=== PATIENT | male | born 1945 | race Caucasian/White ===

== ENCOUNTER 2019-08-15 02:17 | Inpatient (IN) | payer MEDICARE, BC ==
[~2019-08-15] VITALS: Ht 188 cm; Wt 87.0 kg
[2019-08-15] MEDS ORDERED: SODIUM CHLORIDE 0.9% 1,000ML IVBOLUS ONE (03:00)
[2019-08-15 03:01] LABS: MEAN CORPUSCULAR HEMOGLOBIN 32.5 pg (27.5-34.5); MEAN CORPUSCULAR HGB CONC 32.6 g/dL (33.2-36.2); MEAN CORPUSCULAR VOLUME 99.6 fL (81-97); MEAN PLATELET VOLUME 8.2 fL (7.4-10.4); PLATELET COUNT 151 x10^3/uL (130-400); RED CELL DISTRIBUTION WIDTH 16.6 % (9.4-14.8)
[2019-08-15 03:11] LABS: INTERNATIONAL NORMALIZED RATIO 1.76 (0.93-1.1); PROTHROMBIN TIME 18.1 Seconds (9.6-11.5)
[2019-08-15 03:13] LABS: ALANINE AMINOTRANSFERASE 171 U/L (12-78); ALBUMIN 2.9 g/dL (3.4-5.0); ANION GAP 6 mmol/L (5-15); CALCIUM 7.9 mg/dL (8.5-10.1); CHLORIDE 110 mmol/L (98-107); CREATININE 1.12 mg/dL (0.7-1.3)
[2019-08-15 03:18] LABS: ALKALINE PHOSPHATASE 271 U/L (45-117); BILIRUBIN,TOTAL 5.5 mg/dL (0.2-1.0); TOTAL PROTEIN 5.8 g/dL (6.4-8.2); TROPONIN I 0.029 ng/mL (0.000-0.045)
[2019-08-15 03:34] LABS: BASOPHILS % (AUTO) 0 % (0-1); EOSINOPHILS % (AUTO) 0 % (1-7); LYMPHOCYTES # (AUTO) 0.52 x10^3/uL (1-3.4); LYMPHOCYTES % (AUTO) 3 % (22-44); MD SCAN; MONOCYTES # (AUTO) 0.39 x10^3/uL (0.2-0.8); MONOCYTES % (AUTO) 2 % (2-9); NEUTROPHILS # (AUTO) 19.35 x10^3/uL (1.8-6.8); NEUTROPHILS % (AUTO) 96 % (42-75)
--- NOTE | 2019-08-15 03:47 | NUR ---
abd pain x2-3 days. bib remsa, transfer from [place]. acute choly with sepsis
--- NOTE | 2019-08-15 03:47 | NUR ---
PT WAS IN CT AND ONE OF HIS IV'S THAT WAS PLACED AT [facility] INFILTRATED WITH CONTRAST. CT PERFORMED WITH ANOTHER IV.
[2019-08-15] MEDS ORDERED: VITA1CAP PO (03:55)
[2019-08-15] MEDS ORDERED: LOSA25TA25 PO (03:55)
[2019-08-15] MEDS ORDERED: HYDR200T72 PO (03:55)
[2019-08-15] MEDS ORDERED: HYDR-3241 PO (03:55)
[2019-08-15] MEDS ORDERED: RIVA10TA2 PO (03:55)
[2019-08-15] MEDS ORDERED: ATEN25TA PO (03:55)
[2019-08-15] MEDS ORDERED: CLON1TAB23 PO (03:55)
[2019-08-15] MEDS ORDERED: WARF-36 PO (03:55)
[2019-08-15] MEDS ORDERED: [UNRECOGNIZED DRUG - CODE] IM (03:55)
[2019-08-15] MEDS ORDERED: PRED10TA14 PO (03:55)
--- NOTE | 2019-08-15 04:00 | NUR ---
MEDICATIONS GIVEN AT [facility] [facility] 1L, ZOSYN, TYLENOL 500MG
[2019-08-15] MEDS ORDERED: ONDANSETRON 2MG/ML, 2ML ONE (05:38)
[2019-08-15] MEDS ORDERED: MORPHINE SULFATE 4 MG/ML, 1ML ONE (05:38)
--- NOTE | 2019-08-15 05:47 | NUR ---
PT AMBULATORY TO THE BATHROOM WITH STEADY GAIT
[2019-08-15] MEDS ORDERED: OMNIPAQUE 350 MG/ML, 100ML BOTTLE ONE (05:55)
[2019-08-15] MEDS ORDERED: MORPHINE SULFATE 4 MG/ML, 1ML IVPush PRN (06:00)
[2019-08-15] MEDS ORDERED: ONDANSETRON 2MG/ML, 2ML IVPush ONE (06:00)
[2019-08-15] MEDS ORDERED: SODIUM CHLORIDE 0.9% 1,000 ML IV ONE (06:08)
[2019-08-15] MEDS ORDERED: ONDANSETRON 2MG/ML, 2ML IVPush PRN ×2 (06:30→08:30)
--- NOTE | 2019-08-15 06:31 | NUR ---
REPORT TO JESÚS ESPARZA
[2019-08-15 07:14] VITALS: BP 127/67
[2019-08-15] MEDS ORDERED: POLYETHYLENE GLYCOL 17 GM PACKET PO PRN (08:30)
[2019-08-15] MEDS ORDERED: ACETAMINOPHEN 325 MG TABLET PO PRN (08:30)
[2019-08-15] MEDS ORDERED: DOCUSATE 100 MG CAPSULE PO PRN (08:30)
[2019-08-15] MEDS ORDERED: hydrALAzine 20 MG/ML, 1ML IVPush PRN (08:30)
[2019-08-15] MEDS ORDERED: ENALAPRILAT 1.25 MG/ML, 2ML IVPush PRN (08:30)
[2019-08-15] MEDS: LACTATED RINGERS 1,000 ML IV SCH ×2 (08:30→23:16)
[2019-08-15] MEDS ORDERED: ONDANSETRON ODT 4 MG PO PRN (08:30)
[2019-08-15] MEDS ORDERED: BISACODYL 10 MG SUPP PR PRN (08:30)
[2019-08-15] MEDS: PIPERACILLIN/TAZO/PMX 4.5GM 100 ML IV SCH ×3 (09:00→21:14)
[2019-08-15] MEDS ORDERED: LORazepam 2 MG/ML, 1ML IVPush ONE (09:30)
[2019-08-15 13:05] VITALS: BP 107/67
[2019-08-15] MEDS ORDERED: ETAN25KI2 PO (13:55)
[2019-08-15] MEDS ORDERED: LORazepam 2 MG/ML, 1ML ONE (14:17)
[2019-08-15 19:13] VITALS: BP 145/78
[2019-08-15] MEDS: morphine SULFATE 10 MG/ML, 1ML IVPush PRN (20:50)
[2019-08-16] VITALS (7 sets, daily range): BP systolic 119–177; BP diastolic 51–81
[2019-08-16] LABS: MICROSCOPIC NOT IND
[2019-08-16 00:34] LABS: CULTURE INDICATED? NO
[2019-08-16] MEDS: PIPERACILLIN/TAZO/PMX 4.5GM 100 ML IV SCH ×3 (03:18→18:02)
[2019-08-16] MEDS: morphine SULFATE 10 MG/ML, 1ML IVPush PRN ×2 (03:19→21:17)
[2019-08-16 05:28] LABS: BASOPHILS # (AUTO) 0.03 x10^3/uL (0-0.1); BASOPHILS % (AUTO) 0 % (0-1); EOSINOPHILS % (AUTO) 1 % (1-7); LYMPHOCYTES # (AUTO) 0.68 x10^3/uL (1-3.4); LYMPHOCYTES % (AUTO) 7 % (22-44); MD NO; MEAN CORPUSCULAR HEMOGLOBIN 33.1 pg (27.5-34.5); MEAN CORPUSCULAR HGB CONC 33.1 g/dL (33.2-36.2); MEAN CORPUSCULAR VOLUME 100.1 fL (81-97); MEAN PLATELET VOLUME 8.7 fL (7.4-10.4); MONOCYTES # (AUTO) 1.01 x10^3/uL (0.2-0.8); MONOCYTES % (AUTO) 10 % (2-9); NEUTROPHILS # (AUTO) 8.33 x10^3/uL (1.8-6.8); NEUTROPHILS % (AUTO) 82 % (42-75); PLATELET COUNT 153 x10^3/uL (130-400); RED BLOOD COUNT 3.55 x10^6/uL (4.38-5.82); RED CELL DISTRIBUTION WIDTH 17.7 % (9.4-14.8)
[2019-08-16 05:37] LABS: ANION GAP 6 mmol/L (5-15); CALCIUM 8.6 mg/dL (8.5-10.1); CHLORIDE 110 mmol/L (98-107)
[2019-08-16 05:43] LABS: ALANINE AMINOTRANSFERASE 124 U/L (12-78); ALBUMIN 2.8 g/dL (3.4-5.0); ALKALINE PHOSPHATASE 253 U/L (45-117); BILIRUBIN,TOTAL 5.5 mg/dL (0.2-1.0); CHOLESTEROL, TOTAL 109 mg/dL (140-239); CREATININE 1.05 mg/dL (0.7-1.3); HDL CHOL % 20 % (26-37); HDL CHOLESTEROL (DIRECT) 22 mg/dL (40-60); TOTAL PROTEIN 5.7 g/dL (6.4-8.2)
[2019-08-16 05:46] LABS: LDL CHOLESTEROL,CALCULATED 71 mg/dL (54-169); LDL/HDL RATIO 3.2 (0.5-3.0); TRIGLYCERIDES 78 mg/dL (50-200); VLDL CHOLESTEROL 16 mg/dL (0-25)
[2019-08-16] MEDS: LACTATED RINGERS 1,000 ML IV SCH ×3 (08:51→23:06)
[2019-08-16] MEDS ORDERED: CEFOTETAN 2 GM ONE (14:42)
[2019-08-16] MEDS ORDERED: ESMOLOL 100 MG/10 ML ONE (14:42)
[2019-08-16] MEDS ORDERED: FENTANYL PF 250 MCG/5ML ONE (14:43)
[2019-08-16] MEDS ORDERED: EPINEPHRINE 1 MG/ML, 1ML ONE (15:01)
[2019-08-16] MEDS ORDERED: BUPIVACAINE/PF 0.5% ONE (15:01)
[2019-08-16] MEDS ORDERED: BUPIVACAINE/PF 0.5% INFIL ONE (15:19)
[2019-08-16] MEDS ORDERED: OMNIPAQUE 350 MG/ML, 50 ML BOTTLE ONE (16:02)
[2019-08-16] MEDS ORDERED: CEFAZOLIN 1,000 MG ONE (16:35)
[2019-08-16] MEDS ORDERED: GLYCOPYRROLATE 0.2MG/1ML, 5ML ONE (16:35)
[2019-08-16] MEDS ORDERED: SUCCINYLCHOLINE 20 MG/ML, 10ML ONE (16:35)
[2019-08-16] MEDS ORDERED: NEOSTIGMINE 1 MG/ML, 10ML ONE (16:35)
[2019-08-16] MEDS ORDERED: ONDANSETRON 2MG/ML, 2ML ONE (16:35)
[2019-08-16] MEDS ORDERED: PROPOFOL 10 MG/ML, 20ML ONE (16:35)
[2019-08-16] MEDS ORDERED: ROCURONIUM 10MG/ML,5ML ONE (16:35)
[2019-08-16] MEDS ORDERED: DEXAMETHASONE 4 MG/ML, 1ML ONE (16:35)
[2019-08-16] MEDS ORDERED: PROMETHAZINE 25 MG/ML, 1ML ONE (16:58)
[2019-08-16] MEDS ORDERED: FENTANYL PF 100 MCG/2ML ONE (16:58)
[2019-08-16] MEDS ORDERED: LABETALOL 5MG/ML, 20ML IV PRN (17:00)
[2019-08-16] MEDS ORDERED: PROMETHAZINE 25 MG/ML, 1ML IV PRN (17:00)
[2019-08-16] MEDS ORDERED: hydrALAzine 20 MG/ML, 1ML IV PRN (17:00)
[2019-08-16] MEDS ORDERED: MEPERIDINE/PF 25MG/ML,1ML IVPush PRN (17:00)
[2019-08-16] MEDS ORDERED: HALOPERIDOL 5 MG/ML IV PRN (17:00)
[2019-08-16] MEDS ORDERED: OXYcodone 5 MG/5 ML ORAL.SOL UDC PO PRN (17:00)
[2019-08-16] MEDS: FENTANYL PF 100 MCG/2ML IV PRN ×2 (17:09→17:15)
[2019-08-16] MEDS ORDERED: HYDROmorphone 1 MG/ML, 1ML VIAL ONE (17:18)
[2019-08-16] MEDS: HYDROmorphone 2 MG/ML, 1ML IVPush PRN ×2 (17:21→17:26)
[2019-08-16] MEDS ORDERED: OXYcodone 5 MG/5 ML ORAL.SOL UDC ONE (17:27)
[2019-08-16] MEDS: HYDROcodone/APAP 5/325 TABLET PO PRN (22:38)
[2019-08-17] MEDS: PIPERACILLIN/TAZO/PMX 4.5GM 100 ML IV SCH ×4 (00:04→17:50)
[2019-08-17 01:05] VITALS: BP 148/73
[2019-08-17] MEDS: HYDROcodone/APAP 5/325 TABLET PO PRN ×4 (04:12→21:51)
[2019-08-17 06:07] LABS: CHLORIDE 108 mmol/L (98-107)
[2019-08-17 06:08] LABS: MEAN CORPUSCULAR HEMOGLOBIN 33.3 pg (27.5-34.5); MEAN CORPUSCULAR VOLUME 100.7 fL (81-97); MEAN PLATELET VOLUME 8.9 fL (7.4-10.4); PLATELET COUNT 196 x10^3/uL (130-400); RED BLOOD COUNT 3.66 x10^6/uL (4.38-5.82); RED CELL DISTRIBUTION WIDTH 17.1 % (9.4-14.8)
[2019-08-17 06:11] LABS: ALANINE AMINOTRANSFERASE 131 U/L (12-78); ALBUMIN 2.7 g/dL (3.4-5.0); ALKALINE PHOSPHATASE 235 U/L (45-117); ANION GAP 5 mmol/L (5-15); BILIRUBIN,TOTAL 2.6 mg/dL (0.2-1.0); CREATININE 1.38 mg/dL (0.7-1.3); TOTAL PROTEIN 5.9 g/dL (6.4-8.2)
[2019-08-17 06:25] LABS: BASOPHILS % (AUTO) 0 % (0-1); EOSINOPHILS % (AUTO) 0 % (1-7); LYMPHOCYTES # (AUTO) 0.28 x10^3/uL (1-3.4); LYMPHOCYTES % (AUTO) 2 % (22-44); MD SCAN; MONOCYTES # (AUTO) 1.16 x10^3/uL (0.2-0.8); MONOCYTES % (AUTO) 6 % (2-9); NEUTROPHILS # (AUTO) 17.82 x10^3/uL (1.8-6.8); NEUTROPHILS % (AUTO) 93 % (42-75)
[2019-08-17 08:02] VITALS: BP 149/67
[2019-08-17 12:50] VITALS: BP 132/74
[2019-08-17 14:25] LABS: INTERNATIONAL NORMALIZED RATIO 1.93 (0.93-1.1); PROTHROMBIN TIME 19.8 Seconds (9.6-11.5)
[2019-08-17] MEDS ORDERED: WARFARIN 5 MG TABLET PO-COUM ONE (19:00)
[2019-08-17 19:54] VITALS: BP 129/68
[2019-08-18] MEDS: PIPERACILLIN/TAZO/PMX 4.5GM 100 ML IV SCH ×3 (00:07→12:17)
[2019-08-18 01:16] VITALS: BP 121/64
[2019-08-18] MEDS: HYDROcodone/APAP 5/325 TABLET PO PRN ×4 (03:19→21:04)
[2019-08-18 05:13] LABS: INTERNATIONAL NORMALIZED RATIO 1.69 (0.93-1.1); PROTHROMBIN TIME 17.4 Seconds (9.6-11.5)
[2019-08-18 05:17] LABS: ALBUMIN 2.6 g/dL (3.4-5.0); ANION GAP 2 mmol/L (5-15); CALCIUM 8.3 mg/dL (8.5-10.1); CHLORIDE 108 mmol/L (98-107)
[2019-08-18 05:21] LABS: ALANINE AMINOTRANSFERASE 91 U/L (12-78); ALKALINE PHOSPHATASE 166 U/L (45-117); BILIRUBIN,TOTAL 2.4 mg/dL (0.2-1.0); CREATININE 0.94 mg/dL (0.7-1.3); TOTAL PROTEIN 5.8 g/dL (6.4-8.2)
[2019-08-18 05:30] LABS: BASOPHILS # (AUTO) 0.01 x10^3/uL (0-0.1); BASOPHILS % (AUTO) 0 % (0-1); EOSINOPHILS # (AUTO) 0.04 x10^3/uL (0-0.4); EOSINOPHILS % (AUTO) 0 % (1-7); LYMPHOCYTES # (AUTO) 0.63 x10^3/uL (1-3.4); LYMPHOCYTES % (AUTO) 6 % (22-44); MD NO; MEAN CORPUSCULAR HEMOGLOBIN 33.3 pg (27.5-34.5); MEAN CORPUSCULAR HGB CONC 33.1 g/dL (33.2-36.2); MEAN CORPUSCULAR VOLUME 100.6 fL (81-97); MEAN PLATELET VOLUME 8.6 fL (7.4-10.4); MONOCYTES # (AUTO) 1.22 x10^3/uL (0.2-0.8); MONOCYTES % (AUTO) 11 % (2-9); NEUTROPHILS % (AUTO) 83 % (42-75); PLATELET COUNT 169 x10^3/uL (130-400); RED BLOOD COUNT 3.39 x10^6/uL (4.38-5.82); RED CELL DISTRIBUTION WIDTH 16.8 % (9.4-14.8)
[2019-08-18 07:15] VITALS: BP 152/85
[2019-08-18 14:09] VITALS: BP 158/76
[2019-08-18] MEDS: CEFTRIAXONE PMX 2GM/50ML 50 ML IV SCH (16:49)
[2019-08-18] MEDS ORDERED: WARFARIN 7.5 MG TABLET PO-COUM ONE (18:00)
[2019-08-18 19:58] VITALS: BP 150/75
[2019-08-19 03:00] VITALS: BP 146/76
[2019-08-19] MEDS: HYDROcodone/APAP 5/325 TABLET PO PRN ×3 (04:01→16:53)
[2019-08-19 06:23] LABS: BASOPHILS # (AUTO) 0.03 x10^3/uL (0-0.1); BASOPHILS % (AUTO) 0 % (0-1); EOSINOPHILS # (AUTO) 0.15 x10^3/uL (0-0.4); EOSINOPHILS % (AUTO) 2 % (1-7); LYMPHOCYTES # (AUTO) 0.58 x10^3/uL (1-3.4); LYMPHOCYTES % (AUTO) 6 % (22-44); MD NO; MEAN CORPUSCULAR HEMOGLOBIN 32.9 pg (27.5-34.5); MEAN CORPUSCULAR HGB CONC 32.9 g/dL (33.2-36.2); MEAN PLATELET VOLUME 8.4 fL (7.4-10.4); MONOCYTES # (AUTO) 0.92 x10^3/uL (0.2-0.8); MONOCYTES % (AUTO) 10 % (2-9); NEUTROPHILS # (AUTO) 7.32 x10^3/uL (1.8-6.8); NEUTROPHILS % (AUTO) 81 % (42-75); PLATELET COUNT 167 x10^3/uL (130-400); RED BLOOD COUNT 3.23 x10^6/uL (4.38-5.82); RED CELL DISTRIBUTION WIDTH 16.6 % (9.4-14.8)
[2019-08-19 06:29] LABS: INTERNATIONAL NORMALIZED RATIO 1.76 (0.93-1.1); PROTHROMBIN TIME 18.1 Seconds (9.6-11.5)
[2019-08-19 06:33] LABS: CHLORIDE 109 mmol/L (98-107)
[2019-08-19 06:44] LABS: ALANINE AMINOTRANSFERASE 66 U/L (12-78); ALBUMIN 2.4 g/dL (3.4-5.0); ALKALINE PHOSPHATASE 147 U/L (45-117); ANION GAP 3 mmol/L (5-15); BILIRUBIN,TOTAL 1.4 mg/dL (0.2-1.0); CALCIUM 8.1 mg/dL (8.5-10.1); CREATININE 0.71 mg/dL (0.7-1.3); TOTAL PROTEIN 5.5 g/dL (6.4-8.2)
[2019-08-19] MEDS ORDERED: ENOXAPARIN 40 MG/0.4 ML SQ SCH (09:30)
[2019-08-19] MEDS ORDERED: POTASSIUM CHLORIDE 20 MEQ TAB.ER.PRT PO ONE (09:30)
[2019-08-19 09:35] VITALS: BP 166/72
[2019-08-19 12:39] VITALS: BP 184/79
[2019-08-19] MEDS: CEFTRIAXONE PMX 2GM/50ML 50 ML IV SCH (14:53)
[2019-08-19] MEDS ORDERED: CEPH-368 PO (14:59)
[2019-08-19] MEDS ORDERED: CEFT2PIG2 IV (14:59)
[2019-08-19] MEDS ORDERED: WARF7.5T PO-COUM (14:59)
[2019-08-19] MEDS ORDERED: WARFARIN 7.5 MG TABLET PO-COUM ONE (18:00)
== END 2019-08-19 17:22 | disposition home or self-care (01) | DRG 853 ==
LOC: ED 03:51 → EDIP 06:13 → 3N 07:02 → DCLOUNGE 08-19 16:58
PROVIDERS: ADMIT Hospitalist; ATTEND Internal Medicine
PROC: BF131ZZ Fluoroscopy of Gallbladder and Bile Ducts using Low Osmolar Contrast (ICD-10-PCS; 2019-08-16)
PROC: 0FT44ZZ Resection of Gallbladder, Percutaneous Endoscopic Approach (ICD-10-PCS; principal; 2019-08-16 14:30)
PROC: 0FC98ZZ Extirpation of Matter from Common Bile Duct, Via Natural or Artificial Opening Endoscopic (ICD-10-PCS; 2019-08-16 14:30)
PROC: 02HV33Z Insertion of Infusion Device into Superior Vena Cava, Percutaneous Approach (ICD-10-PCS; 2019-08-19)
PROC: B548ZZA Ultrasonography of Superior Vena Cava, Guidance (ICD-10-PCS; 2019-08-19)
PROC: B5181ZA Fluoroscopy of Superior Vena Cava using Low Osmolar Contrast, Guidance (ICD-10-PCS; 2019-08-19)
DX: A41.59 Other Gram-negative sepsis (principal); K85.10 Biliary acute pancreatitis without necrosis or infection; R65.21 Severe sepsis with septic shock; I48.20 Chronic atrial fibrillation, unspecified; D68.69 Other thrombophilia; K80.63 Calculus of gallbladder and bile duct with acute cholecystitis with obstruction; E11.22 Type 2 diabetes mellitus with diabetic chronic kidney disease; E87.6 Hypokalemia; I25.10 Atherosclerotic heart disease of native coronary artery without angina pectoris; I12.9 Hypertensive chronic kidney disease with stage 1 through stage 4 chronic kidney disease, or unspecified chronic kidney disease; K02.9 Dental caries, unspecified; K72.90 Hepatic failure, unspecified without coma; N20.0 Calculus of kidney; N18.9 Chronic kidney disease, unspecified; M06.9 Rheumatoid arthritis, unspecified; T45.515A Adverse effect of anticoagulants, initial encounter; Z66 Do not resuscitate; Z79.01 Long term (current) use of anticoagulants; Z85.828 Personal history of other malignant neoplasm of skin; Z87.442 Personal history of urinary calculi; Z87.891 Personal history of nicotine dependence; Z95.1 Presence of aortocoronary bypass graft; Z98.84 Bariatric surgery status; Y92.89 Other specified places as the place of occurrence of the external cause
CPT/HCPCS: 36415; 36573; 74177; 74181; 74328; 80053; 80061; 81003; 83605; 83690; 83735; 84100; 84145; 84484; 85025; 85610; 87040; 88304; 93005; 96374; 96375; G0378; J0171; J0690; J0696; J1100; J1170; J1650; J2405; J2543; J2550; J2704; J2710; J3010; Q9967; C1751; C1769; J0330; J0360; J2060; J2270; J3490; J7030; J7120